=== PATIENT | female | born 1960 | race Caucasian/White ===

== ENCOUNTER 2016-08-11 10:10 | Outpatient (RCR) | payer MEDICARE, MEDICAID ==
--- OUTSIDE RECORDS SUMMARY | 2016-08-07 10:51 | XMS REPORT | Continuity of Care Document ---
Author Author [facility] Organization [facility] Address Unknown Phone Unavailable Care Team Providers Care Mill Representative Name Role Phone SCOTT RANDOLPH DO PCP Insurance Providers Payer Name Policy Number Subscriber Name Relationship [employer] Medicare [id number] Genesis Gandara 18 Self / Same As Patient [facility] [id number] Genesis Gandara 18 Self / Same As Patient [facility] Genesis Welsh 18 Self / Same As Patient Advance Directives Directive Response Recorded Date/Time Advance Directives No 07/12/15 10:34am Health Care Power of Audit Lead No 07/12/15 10:34am Organ Donor No 07/12/15 10:34am Problems Active Problems Medical Problem Onset Date Status Anemia Unknown Acute Hypercarbia Unknown Acute Respiratory failure, acute Unknown Acute Medications Current Home Medications Medication Dose Units Route Directions Days/Qty Instructions Start Date Escitalopram Oxalate 10 Mg 10 Mg Oral Daily 07/12/15 Ursodiol 300 Mg 600 Mg Oral Twice A Day 07/12/15 Furosemide 80 Mg 40 Mg Oral Daily TAKES 1/2 OF A (80 MG) TABLET Spironolactone 100 Mg 100 Mg Oral Daily 07/12/15 Potassium Chloride 20 Meq 20 Meq Oral Daily 07/12/15 Omeprazole 40 Mg 40 Mg Oral Twice A Day 07/12/15 Lipase/Protease/Amylase 1 Each 48,000 Units Oral Before Meals Rifaximin 550 Mg 550 Mg Oral Twice A Day 07/12/15 Teriparatide 600 Mcg/2.4 Ml 20 Mcg Sub-Q Daily 07/12/15 Oxycodone Hcl 15 Mg 7.5 Mg Oral Every 4HRS as needed for Pain 90 07/14 Alprazolam 1 Mg 0.5 Mg Oral Three Times A Day 45 07/14/15 Gabapentin 600 Mg 300 Mg Oral Bedtime 30 07/14/15 Levofloxacin 750 Mg 750 Mg Oral Daily@1100 12 07/14/15 Past Home Medications Medication Directions Ordered Status Aspirin 81 Mg Tabec, 81 Mg Oral Daily 03/07/12 Discontinued Me-Cobalam/Lm-Folate/Pyridoxal 1 Tab Tablet, 1 Tab Oral Daily 03/07/12 Discontinued Oxycodone Hcl/Acetaminophen 1 Each Tablet, 1 Each Oral Daily 03/07/12 Discontinued Tiotropium [place] 1 Inh Aerp, 1 Inhalation Daily@0900 03/07/12 Discontinued Zonisamide 100 Mg Capsule, 100 Mg Oral Twice A Day 03/07/12 Discontinued Albuterol Sulfate 0.63 Mg/3 Ml Vial.neb, 2.5 Mg Inhalation Every 6 Hours as needed 03/07/12 Discontinued Quetiapine Fumarate 200 Mg Tablet, 200 Mg Oral Bedtime 03/07/12 Discontinued Desvenlafaxine Succinate 100 Mg Tab.sr.24h, 100 Mg Oral Daily 03/07/12 Discontinued Alprazolam 1 Mg Tablet, 1 Mg Oral Three Times A Day 03/07/12 Discontinued Ferrous Sulfate 325 Mg Tablet, 325 Mg Oral Twice A Day 03/07/12 Discontinued Ursodiol 250 Mg Tablet, 300 Mg Oral Four Times Daily 07/16/13 Discontinued Esomeprazole Magnesium 40 Mg Capsule.dr, 1 Cap Oral Twice A Day 07/16/13 Discontinued Fluticasone Propionate 250 Mcg Disk.w.dev, 250 Mcg Inhalation 07/16/13 Discontinued Baclofen (Lioresal) 20 Mg Tablet, 1 Each Oral Twice Daily And Prn 07/16/13 Discontinued Fluticasone Propionate 50 Mcg/16 G [place], 50 Mcg Nasal 07/16/13 Discontinued Lidocaine 1 Ea Patch, 3 Each Topically Daily 07/16/13 Discontinued Furosemide (Lasix) 20 Mg Tablet, 1 Each Oral Daily 07/16/13 Discontinued Morphine Sulfate 60 Mg Tablet.sa, 1 Each Oral Give Every 12 Hrs On Schedule 07/16/13 Discontinued Prochlorperazine (Compazine) 5 Mg Tablet, 1-2 Each Oral Q 6 - 8 Hrs Prn 07/16 Discontinued Propranolol Hcl 40 Mg Tablet, 1 Each Oral Daily 07/16/13 Discontinued [Tecfidera] , 240 Mg Oral Twice A Day 07/16/13 Discontinued Morphine Sulfate 100 Mg Tablet.er, 100 Mg Oral Every 12 Hours 07/12/15 Discontinued Oxycodone Hcl 15 Mg Tablet, 15 Mg Oral Four Times Daily as needed for Breakthrough Pain 07/12/15 Discontinued Alprazolam 1 Mg Tablet, 1 Mg Oral Three Times A Day 07/12/15 Discontinued Quetiapine Fumarate 200 Mg Tablet, 200 Mg Oral Bedtime 07/12/15 Discontinued Gabapentin 600 Mg Tablet, 600 Mg Oral Bedtime 07/12/15 Discontinued Social History Social History Problem Response Recorded Date/Time Alcohol Use Denies Use 07/12/2015 3:52pm Recreational Drug Use No 07/12/2015 3:52pm Recent Foreign Travel No 05/12/2016 7:28am Sexually Transmitted Disease No 07/12/2015 3:52pm HIV/AIDS No 07/12/2015 3:52pm Do you dip or chew tobacco? No 07/12/2015 10:34am Sexually Transmitted Disease No 07/12/2015 3:52pm Hospital Discharge Instructions Current inpatient/outpatient. Discharge instructions are currently unavailable. Plan of Care Prescriptions Functional Status No functional status results. Allergies, Adverse Reactions, Alerts No known allergies. Immunizations No immunization records. Vital Signs No known vital signs results. Results Laboratory Results Test Name Result Units Flags Reference Collection Date/Time Result Date/ Time Comments White Blood Count 3.7 10^3/uL L 4.3-11.0 05/04/2016 2:18pm 05/04/2016 2: 26pm Red Blood Count 3.88 10^6/uL L 4.35-5.85 05/04/2016 2:18pm 05/04/2016 2: 26pm Hemoglobin 11.4 G/DL L 11.5-16.0 05/04/2016 2:18pm 05/04/2016 2:26pm Hematocrit 35 % 35-52 05/04/2016 2:18pm 05/04/2016 2:26pm Mean Corpuscular Volume 90 FL 80-99 05/04/2016 2:18pm 05/04/2016 2: 26pm Mean Corpuscular Hemoglobin 29 PG 25-34 05/04/2016 2:18pm 05/04/2016 2: 26pm Mean Corpuscular Hemoglobin Concent 33 G/DL 32-36 05/04/2016 2:18pm 2:26pm Red Cell Distribution Width 14.6 % H 10.0-14.5 05/04/2016 2:18pm 2015 2:26pm Platelet Count 92 10^3/uL L 130-400 05/04/2016 2:18pm 05/04/2016 2:26pm Mean Platelet Volume 10.4 FL 7.4-10.4 05/04/2016 2:18pm 05/04/2016 2: 26pm Neutrophils (%) (Auto) 68 % 42-75 05/04/2016 2:18pm 05/04/2016 2:26pm Lymphocytes (%) (Auto) 20 % 12-44 05/04/2016 2:18pm 05/04/2016 2:26pm Monocytes (%) (Auto) 8 % 0-12 05/04/2016 2:18pm 05/04/2016 2:26pm Eosinophils (%) (Auto) 4 % 0-10 05/04/2016 2:18pm 05/04/2016 2:26pm Basophils (%) (Auto) 0 % 0-10 05/04/2016 2:18pm 05/04/2016 2:26pm Neutrophils # (Auto) 2.5 X 10^3 1.8-7.8 05/04/2016 2:18pm 05/04/2016 2: 26pm Lymphocytes # (Auto) 0.7 X 10^3 L 1.0-4.0 05/04/2016 2:18pm 05/04/2016 2: 26pm Monocytes # (Auto) 0.3 X 10^3 0.0-1.0 05/04/2016 2:18pm 05/04/2016 2: 26pm Eosinophils # (Auto) 0.1 10^3/uL 0.0-0.3 05/04/2016 2:18pm 05/04/2016 2 :26pm Basophils # (Auto) 0.0 10^3/uL 0.0-0.1 05/04/2016 2:18pm 05/04/2016 2: 26pm Sodium Level 144 MMOL/L 135-145 05/04/2016 2:18pm 05/04/2016 3:05pm Potassium Level 4.2 MMOL/L 3.6-5.0 05/04/2016 2:18pm 05/04/2016 3:05pm Chloride Level 112 MMOL/L H 98-107 05/04/2016 2:18pm 05/04/2016 3:05pm Carbon Dioxide Level 21 MMOL/L 21-32 05/04/2016 2:18pm 05/04/2016 3: 05pm Anion Gap 11 MMOL/L 5-14 05/04/2016 2:18pm 05/04/2016 3:05pm Blood Urea Nitrogen 25 MG/DL H 7-18 05/04/2016 2:18pm 05/04/2016 3:05pm Creatinine 1.54 MG/DL H 0.60-1.30 05/04/2016 2:18pm 05/04/2016 3:05pm BUN/Creatinine Ratio 16 05/04/2016 2:18pm 05/04/2016 3:05pm Estimat Glomerular Filtration Rate 35 05/04/2016 2:18pm 05/04/2016 3:05pm GFR INTERPRETIVE DATA UNITS FOR ESTIMATED GFR (eGFR): mL/min/1.73 M2 REFERENCE RANGE FOR ESTIMATED GFR (eGFR) eGFR NORMAL eGFR >60 MODERATELY DECREASED eGFR 30-59 SEVERLY DECREASED eGFR 15-29 KIDNEY FAILURE <15 (OR DIALYSIS) Glucose Level 119 MG/DL H 70-105 05/04/2016 2:18pm 05/04/2016 3:05pm Calcium Level 9.1 MG/DL 8.5-10.1 05/04/2016 2:18pm 05/04/2016 3:05pm Total Bilirubin 0.4 MG/DL 0.1-1.0 05/04/2016 2:18pm 05/04/2016 3:05pm Alkaline Phosphatase 146 U/L H 40-136 05/04/2016 2:18pm 05/04/2016 3: 05pm Aspartate Amino Transf (AST/SGOT) 44 U/L H 5-34 05/04/2016 2:18pm 2015 3:05pm Alanine Aminotransferase (ALT/SGPT) 19 U/L 0-55 05/04/2016 2:18pm 05/04 3:05pm Total Protein 6.2 G/DL L 6.4-8.2 05/04/2016 2:18pm 05/04/2016 3:05pm Albumin 3.4 G/DL 3.2-4.5 05/04/2016 2:18pm 05/04/2016 3:05pm Ferritin 84 ng/mL 15-150 05/04/2016 2:18pm 05/05/2016 6:51am Test performed at [facility], CLIA# [id number] [address] [place] [address] Procedures No known history of procedures. Encounters Encounter Location Arrival/Admit Date Discharge/Depart Date Attending Provider Registered Clinic [facility] 05/12/16 7:31am SCOTT RANDOLPH DO Discharged Recurring [facility] 05/10/16 2:48pm 11:59pm TERRI AHN Registered Clinic [facility] 05/09/16 10:06am SCOTT RANDOLPH DO
[2016-08-07 11:05] LABS: BASOPHILS % (AUTO) 0 % (0-10); EOSINOPHILS # (AUTO) 0.1 10^3/uL (0.0-0.3); EOSINOPHILS % (AUTO) 3 % (0-10); LYMPHOCYTES % (AUTO) 26 % (12-44); MEAN CORPUSCULAR HEMOGLOBIN 29 PG (25-34); MEAN CORPUSCULAR HGB CONC 33 G/DL (32-36); MEAN CORPUSCULAR VOLUME 88 FL (80-99); MEAN PLATELET VOLUME 10.6 FL (7.4-10.4); MONOCYTES # (AUTO) 0.4 X 10^3 (0.0-1.0); MONOCYTES % (AUTO) 10 % (0-12); NEUTROPHILS # (AUTO) 2.3 X 10^3 (1.8-7.8); NEUTROPHILS % (AUTO) 61 % (42-75); PLATELET COUNT 105 10^3/uL (130-400); RED BLOOD COUNT 4.28 10^6/uL (4.35-5.85); WHITE BLOOD COUNT 3.8 10^3/uL (4.3-11.0)
[2016-08-07 11:39] LABS: ALBUMIN 3.8 G/DL (3.2-4.5); BILIRUBIN,TOTAL 0.5 MG/DL (0.1-1.0); CALCIUM 9.1 MG/DL (8.5-10.1); CREATININE SERUM 1.39 MG/DL (0.60-1.30); POTASSIUM 4.4 MMOL/L (3.6-5.0); TOTAL PROTEIN 7.1 G/DL (6.4-8.2)
[~2016-08-11 10:10] MED LIST: ALBU0.632 IH; ALPR1T PO; ALPR1TAB7 PO; ASP81TEC PO; BACL20TA PO; DESV100T PO; ESCI10TA55 PO; FERR-57 PO; FLUT250D IH; FURO20TA4 PO; FURO80TA3 PO; GABA600T2 PO; HYDR-757 PO; LD5PT TOP; LEVO750T39 PO; LIPA1CAP4 PO; MORP100T37 PO; MORP60TA28 PO; NF-ESOM40C PO; NF-FLON16G; NF-METANX PO; OMEP40CA36 PO; OXYC-465 PO; OXYC15TA79 PO; POTA20TA15 PO; PROC5TAB PO; PROP40TA5 PO; QTP200T PO; QUET200T57 PO; RIFA550T PO; SPIR100T2 PO; TERI202.4P SQ; TIOT18CA IH; URSO250T11 PO; URSO300C3 PO; ZONI100C11 PO; tecfidera PO
[2016-08-11 11:17] LABS: BILIRUBIN,URINE NEGATIVE (NEGATIVE); KETONES,URINE NEGATIVE (NEGATIVE); LEUKOCYTE ESTERASE ,URINE 2+ (NEGATIVE); NITRITE,URINE POSITIVE (NEGATIVE); PH,URINE 6.5 (5-9); PROTEIN,URINE NEGATIVE (NEGATIVE); UROBILINOGEN,URINE NORMAL (NORMAL)
== END 2016-11-05 | disposition home or self-care (01) ==
LOC: ONC 10:10
PROVIDERS: ATTEND Internal Medicine Hematology & Oncology
DX: D50.0 Iron deficiency anemia secondary to blood loss (chronic) (principal); K74.3 Primary biliary cirrhosis; D61.818 Other pancytopenia; R16.1 Splenomegaly, not elsewhere classified; F17.210 Nicotine dependence, cigarettes, uncomplicated; R82.99 Other abnormal findings in urine; Z79.899 Other long term (current) drug therapy
CPT/HCPCS: 36415; 80053; 81000; 82728; 85025; 87088; 87186; 99213

== ENCOUNTER → 2016-10-18 | Outpatient (CLI) | payer MEDICARE, MEDICAID ==
--- OUTSIDE RECORDS SUMMARY | 2016-10-18 14:42 | XMS REPORT | Continuity of Care Document ---
Author Author [facility] Organization [facility] Address Unknown Phone Unavailable Care Team Providers Care Analysis Engineer Name Role Phone SCOTT RANDOLPH DO PCP Insurance Providers Payer Name Policy Number Subscriber Name Relationship Wps Medicare [id number] Genesis Gandara 18 Self / Same As Patient [facility] [id number] Genesis Gandara 18 Self / Same As Patient [facility] Genesis Welsh 18 Self / Same As Patient Advance Directives Directive Response Recorded Date/Time Advance Directives No 07/12/15 10:34am Health Care Power of Jointer Machine No 07/12/15 10:34am Organ Donor No 07/12/15 [...] 1 Each Oral Daily 03/07/12 Discontinued Tiotropium [place] 1 Inh Aerp, 1 Inhalation Daily@0900 03/07/12 [...] 07/16/13 Discontinued Fluticasone Propionate 50 Mcg/16 G [place], 50 Mcg Nasal 07/16/13 Discontinued Lidocaine 1 [...] 05/04/2016 2:18pm 05/05/2016 6:51am Test performed at [facility], CLIA# [id number] [address] [place] [address] Procedures No known history of procedures. Encounters Encounter Location Arrival/Admit Date Discharge/Depart Date Attending Provider Registered Clinic [facility] 05/12/16 7:31am SCOTT RANDOLPH DO Discharged Recurring [facility] 05/10/16 2:48pm 11:59pm TERRI AHN Registered Clinic [facility] 05/09/16 10:06am SCOTT RANDOLPH DO
--- NOTE | 2016-10-18 15:19 | Diagnostic Imaging Report ---
INDICATION: Lower respiratory infection. EXAMINATION: PA and lateral chest. FINDINGS: Heart size and pulmonary vascularity are normal. Lungs are clear. There are no effusions or pneumothoraces. IMPRESSION: Negative chest. Dictated by: Dictated on workstation # [id number]
== END ==
LOC: RAD 14:39
PROVIDERS: ATTEND Family Medicine
DX: R05 Cough (principal); R06.2 Wheezing
CPT/HCPCS: 71020

== ENCOUNTER 2016-12-07 09:54 | Outpatient (RCR) | payer MEDICARE, MEDICAID ==
[2016-11-30 14:20] LABS: BASOPHILS % (AUTO) 0 % (0-10); EOSINOPHILS # (AUTO) 0.2 10^3/uL (0.0-0.3); EOSINOPHILS % (AUTO) 6 % (0-10); LYMPHOCYTES # (AUTO) 0.8 X 10^3 (1.0-4.0); LYMPHOCYTES % (AUTO) 24 % (12-44); MEAN CORPUSCULAR HEMOGLOBIN 30 PG (25-34); MEAN CORPUSCULAR HGB CONC 32 G/DL (32-36); MEAN CORPUSCULAR VOLUME 92 FL (80-99); MEAN PLATELET VOLUME 10.1 FL (7.4-10.4); MONOCYTES # (AUTO) 0.3 X 10^3 (0.0-1.0); MONOCYTES % (AUTO) 10 % (0-12); NEUTROPHILS # (AUTO) 2.1 X 10^3 (1.8-7.8); NEUTROPHILS % (AUTO) 61 % (42-75); PLATELET COUNT 105 10^3/uL (130-400); RED BLOOD COUNT 4.09 10^6/uL (4.35-5.85); RED CELL DISTRIBUTION WIDTH 14.5 % (10.0-14.5); WHITE BLOOD COUNT 3.4 10^3/uL (4.3-11.0)
[2016-11-30 14:55] LABS: ALBUMIN 3.3 G/DL (3.2-4.5); BILIRUBIN,TOTAL 0.3 MG/DL (0.1-1.0); CALCIUM 8.8 MG/DL (8.5-10.1); CREATININE SERUM 1.39 MG/DL (0.60-1.30); TOTAL PROTEIN 6.2 G/DL (6.4-8.2)
== END 2017-02-28 | disposition home or self-care (01) ==
LOC: ONC 09:54
PROVIDERS: ATTEND Internal Medicine Hematology & Oncology
DX: D50.0 Iron deficiency anemia secondary to blood loss (chronic) (principal); K74.3 Primary biliary cirrhosis; D61.818 Other pancytopenia; R16.1 Splenomegaly, not elsewhere classified; F17.210 Nicotine dependence, cigarettes, uncomplicated; Z79.899 Other long term (current) drug therapy
CPT/HCPCS: 36415; 80053; 82728; 85025; 99213

== ENCOUNTER 2017-04-17 15:16 | Outpatient (RCR) | payer MEDICARE, MEDICAID ==
[2017-03-01 13:50] LABS: BASOPHILS % (AUTO) 0 % (0-10); EOSINOPHILS # (AUTO) 0.2 10^3/uL (0.0-0.3); EOSINOPHILS % (AUTO) 4 % (0-10); LYMPHOCYTES # (AUTO) 1.2 X 10^3 (1.0-4.0); LYMPHOCYTES % (AUTO) 27 % (12-44); MEAN CORPUSCULAR HEMOGLOBIN 29 PG (25-34); MEAN CORPUSCULAR HGB CONC 32 G/DL (32-36); MEAN CORPUSCULAR VOLUME 90 FL (80-99); MONOCYTES # (AUTO) 0.5 X 10^3 (0.0-1.0); MONOCYTES % (AUTO) 10 % (0-12); NEUTROPHILS # (AUTO) 2.8 X 10^3 (1.8-7.8); NEUTROPHILS % (AUTO) 59 % (42-75); PLATELET COUNT 105 10^3/uL (130-400); RED BLOOD COUNT 4.48 10^6/uL (4.35-5.85); RED CELL DISTRIBUTION WIDTH 14.7 % (10.0-14.5); WHITE BLOOD COUNT 4.7 10^3/uL (4.3-11.0)
[2017-03-01 14:04] LABS: ALBUMIN 3.8 GM/DL (3.2-4.5); BILIRUBIN,TOTAL 0.4 MG/DL (0.1-1.0); CALCIUM 9.3 MG/DL (8.5-10.1); CREATININE SERUM 1.63 MG/DL (0.60-1.30); ICTERUS 0.4 (-100-1.9); POTASSIUM 4.7 MMOL/L (3.6-5.0); TOTAL PROTEIN 7.8 GM/DL (6.4-8.2)
[2017-04-17 15:26] LABS: BASOPHILS % (AUTO) 0 % (0-10); EOSINOPHILS # (AUTO) 0.2 10^3/uL (0.0-0.3); EOSINOPHILS % (AUTO) 3 % (0-10); LYMPHOCYTES # (AUTO) 1.4 X 10^3 (1.0-4.0); LYMPHOCYTES % (AUTO) 25 % (12-44); MEAN CORPUSCULAR HEMOGLOBIN 30 PG (25-34); MEAN CORPUSCULAR HGB CONC 33 G/DL (32-36); MEAN CORPUSCULAR VOLUME 89 FL (80-99); MONOCYTES # (AUTO) 0.5 X 10^3 (0.0-1.0); MONOCYTES % (AUTO) 9 % (0-12); NEUTROPHILS # (AUTO) 3.6 X 10^3 (1.8-7.8); NEUTROPHILS % (AUTO) 63 % (42-75); PLATELET COUNT 116 10^3/uL (130-400); RED BLOOD COUNT 4.45 10^6/uL (4.35-5.85); RED CELL DISTRIBUTION WIDTH 14.9 % (10.0-14.5); WHITE BLOOD COUNT 5.7 10^3/uL (4.3-11.0)
[2017-04-17 15:50] LABS: CALCIUM 10.3 MG/DL (8.5-10.1); CREATININE SERUM 2.04 MG/DL (0.60-1.30); POTASSIUM 4.9 MMOL/L (3.6-5.0)
== END 2017-05-30 | disposition home or self-care (01) ==
LOC: ONC 15:16
PROVIDERS: ATTEND Internal Medicine Hematology & Oncology
DX: D50.0 Iron deficiency anemia secondary to blood loss (chronic); R16.1 Splenomegaly, not elsewhere classified; D61.818 Other pancytopenia; K74.3 Primary biliary cirrhosis; F17.210 Nicotine dependence, cigarettes, uncomplicated; Z79.899 Other long term (current) drug therapy
CPT/HCPCS: 36415; 80048; 80053; 82728; 85025; 99213

== ENCOUNTER 2017-06-05 15:29 | Outpatient (RCR) | payer MEDICARE, MEDICAID ==
[2017-06-05 16:03] LABS: BASOPHILS % (AUTO) 0 % (0-10); EOSINOPHILS # (AUTO) 0.2 10^3/uL (0.0-0.3); EOSINOPHILS % (AUTO) 4 % (0-10); LYMPHOCYTES # (AUTO) 0.9 X 10^3 (1.0-4.0); LYMPHOCYTES % (AUTO) 23 % (12-44); MEAN CORPUSCULAR HEMOGLOBIN 30 PG (25-34); MEAN CORPUSCULAR HGB CONC 33 G/DL (32-36); MEAN CORPUSCULAR VOLUME 93 FL (80-99); MONOCYTES # (AUTO) 0.4 X 10^3 (0.0-1.0); MONOCYTES % (AUTO) 10 % (0-12); NEUTROPHILS # (AUTO) 2.3 X 10^3 (1.8-7.8); NEUTROPHILS % (AUTO) 63 % (42-75); PLATELET COUNT 83 10^3/uL (130-400); RED BLOOD COUNT 3.93 10^6/uL (4.35-5.85); RED CELL DISTRIBUTION WIDTH 13.9 % (10.0-14.5); WHITE BLOOD COUNT 3.6 10^3/uL (4.3-11.0)
[2017-06-05 16:25] LABS: ALBUMIN 3.1 GM/DL (3.2-4.5); BILIRUBIN,TOTAL 0.5 MG/DL (0.1-1.0); CALCIUM 8.6 MG/DL (8.5-10.1); CREATININE SERUM 1.31 MG/DL (0.60-1.30); POTASSIUM 4.6 MMOL/L (3.6-5.0); TOTAL PROTEIN 6.3 GM/DL (6.4-8.2)
== END 2017-06-09 | disposition home or self-care (01) ==
LOC: ONC 15:29
PROVIDERS: ATTEND Internal Medicine Hematology & Oncology
DX: D50.0 Iron deficiency anemia secondary to blood loss (chronic) (principal); K74.3 Primary biliary cirrhosis; D61.818 Other pancytopenia; R16.1 Splenomegaly, not elsewhere classified; F17.210 Nicotine dependence, cigarettes, uncomplicated; Z79.899 Other long term (current) drug therapy
CPT/HCPCS: 36415; 80053; 82728; 85025

== ENCOUNTER 2017-06-14 13:21 | Outpatient (RCR) | payer MEDICARE, MEDICAID | END 2017-09-12 | disposition home or self-care (01) | LOC: ONC 13:21 | PROVIDERS: ATTEND Internal Medicine Hematology & Oncology | DX: D50.0 Iron deficiency anemia secondary to blood loss (chronic) (principal); K92.2 Gastrointestinal hemorrhage, unspecified; K74.3 Primary biliary cirrhosis; D61.818 Other pancytopenia; R16.1 Splenomegaly, not elsewhere classified; F17.210 Nicotine dependence, cigarettes, uncomplicated; L03.113 Cellulitis of right upper limb; S40.861A Insect bite (nonvenomous) of right upper arm, initial encounter; W57.XXXA Bitten or stung by nonvenomous insect and other nonvenomous arthropods, initial encounter; Z79.899 Other long term (current) drug therapy | CPT/HCPCS: 99213 ==

== ENCOUNTER → 2017-10-17 | Outpatient (CLI) | payer MEDICARE, MEDICAID ==
--- NOTE | 2017-10-17 18:20 | Diagnostic Imaging Report ---
INDICATION: Left hip pain x2 weeks. FINDINGS: There appears to be an old healed fracture of the left pubis. There is minimal joint space narrowing. There is a small osteophyte beginning to from at the superior lateral acetabular margin. IMPRESSION: Early degenerative changes left hip. There is an old healed pubic fracture. Dictated by: Dictated on workstation # [id number]
== END ==
LOC: RAD 16:10
PROVIDERS: ATTEND Nurse Practitioner Family
DX: M16.12 Unilateral primary osteoarthritis, left hip (principal); Z87.81 Personal history of (healed) traumatic fracture
CPT/HCPCS: 73502

== ENCOUNTER 2017-10-30 13:35 | Outpatient (RCR) | payer MEDICARE, MEDICAID ==
[2017-10-15 14:56] LABS: BASOPHILS % (AUTO) 0 % (0-10); EOSINOPHILS # (AUTO) 0.1 10^3/uL (0.0-0.3); EOSINOPHILS % (AUTO) 3 % (0-10); HEMATOCRIT 37 % (35-52); HEMOGLOBIN 12.2 G/DL (11.5-16.0); LYMPHOCYTES # (AUTO) 0.9 X 10^3 (1.0-4.0); LYMPHOCYTES % (AUTO) 25 % (12-44); MEAN CORPUSCULAR HEMOGLOBIN 30 PG (25-34); MEAN CORPUSCULAR HGB CONC 33 G/DL (32-36); MEAN CORPUSCULAR VOLUME 89 FL (80-99); MEAN PLATELET VOLUME 11.8 FL (7.4-10.4); MONOCYTES # (AUTO) 0.4 X 10^3 (0.0-1.0); MONOCYTES % (AUTO) 10 % (0-12); NEUTROPHILS # (AUTO) 2.2 X 10^3 (1.8-7.8); NEUTROPHILS % (AUTO) 62 % (42-75); PLATELET COUNT 94 10^3/uL (130-400); RED BLOOD COUNT 4.14 10^6/uL (4.35-5.85); RED CELL DISTRIBUTION WIDTH 13.9 % (10.0-14.5); WHITE BLOOD COUNT 3.5 10^3/uL (4.3-11.0)
[2017-10-15 15:16] LABS: ALBUMIN 3.2 GM/DL (3.2-4.5); BILIRUBIN,TOTAL 0.6 MG/DL (0.1-1.0); CALCIUM 8.6 MG/DL (8.5-10.1); CREATININE SERUM 1.24 MG/DL (0.60-1.30); POTASSIUM 3.4 MMOL/L (3.6-5.0); TOTAL PROTEIN 6.5 GM/DL (6.4-8.2)
== END 2018-01-13 | disposition home or self-care (01) ==
LOC: ONC 13:35
PROVIDERS: ATTEND Internal Medicine Hematology & Oncology
DX: D50.0 Iron deficiency anemia secondary to blood loss (chronic) (principal); K92.2 Gastrointestinal hemorrhage, unspecified; K74.3 Primary biliary cirrhosis; D61.818 Other pancytopenia; F17.210 Nicotine dependence, cigarettes, uncomplicated; Z79.899 Other long term (current) drug therapy
CPT/HCPCS: 36415; 80053; 82728; 85025; 99213

== ENCOUNTER → 2018-01-10 | Outpatient (CLI) | payer MEDICARE, MEDICAID ==
--- NOTE | 2018-01-10 10:44 | Diagnostic Imaging Report ---
INDICATION: Primary biliary cirrhosis. FINDINGS: The liver is 13.6 cm in size. There appears to be some diffuse liver parenchymal heterogeneity but no discrete liver mass is identified. The gallbladder is surgically absent. No biliary ductal dilatation is seen. Visualized pancreas is unremarkable. Right kidney is unremarkable. There is no ascites. IMPRESSION: Liver heterogeneity. No discrete liver mass is detected. Dictated by: Dictated on workstation # [id number]
== END ==
LOC: RAD 09:37
PROVIDERS: ATTEND Family Medicine
DX: K76.89 Other specified diseases of liver (principal); K74.3 Primary biliary cirrhosis
CPT/HCPCS: 76705

== ENCOUNTER 2018-02-27 08:57 | Outpatient (RCR) | payer MEDICARE, MEDICAID ==
[2018-02-22 10:49] LABS: BASOPHILS % (AUTO) 0 % (0-10); EOSINOPHILS # (AUTO) 0.2 10^3/uL (0.0-0.3); EOSINOPHILS % (AUTO) 4 % (0-10); HEMATOCRIT 38 % (35-52); HEMOGLOBIN 12.8 G/DL (11.5-16.0); LYMPHOCYTES # (AUTO) 0.9 X 10^3 (1.0-4.0); LYMPHOCYTES % (AUTO) 27 % (12-44); MEAN CORPUSCULAR HEMOGLOBIN 30 PG (25-34); MEAN CORPUSCULAR HGB CONC 34 G/DL (32-36); MEAN CORPUSCULAR VOLUME 89 FL (80-99); MEAN PLATELET VOLUME 11.6 FL (7.4-10.4); MONOCYTES # (AUTO) 0.3 X 10^3 (0.0-1.0); MONOCYTES % (AUTO) 9 % (0-12); NEUTROPHILS # (AUTO) 2.1 X 10^3 (1.8-7.8); NEUTROPHILS % (AUTO) 60 % (42-75); PLATELET COUNT 89 10^3/uL (130-400); RED BLOOD COUNT 4.29 10^6/uL (4.35-5.85); RED CELL DISTRIBUTION WIDTH 14.4 % (10.0-14.5); WHITE BLOOD COUNT 3.5 10^3/uL (4.3-11.0)
[2018-02-22 11:05] LABS: ALBUMIN 3.7 GM/DL (3.2-4.5); BILIRUBIN,TOTAL 0.5 MG/DL (0.1-1.0); CALCIUM 9.2 MG/DL (8.5-10.1); CREATININE SERUM 1.24 MG/DL (0.60-1.30); POTASSIUM 4.2 MMOL/L (3.6-5.0); TOTAL PROTEIN 7.1 GM/DL (6.4-8.2)
[~2018-02-27 08:57] MED LIST changes: +HYDR-4226 PO; -HYDR-757 PO; -SPIR100T2 PO; +SPIR100T4 PO
[2018-05-24 13:21] LABS: BASOPHILS % (AUTO) 0 % (0-10); EOSINOPHILS # (AUTO) 0.1 10^3/uL (0.0-0.3); EOSINOPHILS % (AUTO) 3 % (0-10); HEMATOCRIT 36 % (35-52); HEMOGLOBIN 12.2 G/DL (11.5-16.0); LYMPHOCYTES # (AUTO) 1.2 X 10^3 (1.0-4.0); LYMPHOCYTES % (AUTO) 28 % (12-44); MEAN CORPUSCULAR HEMOGLOBIN 31 PG (25-34); MEAN CORPUSCULAR HGB CONC 34 G/DL (32-36); MEAN CORPUSCULAR VOLUME 90 FL (80-99); MONOCYTES # (AUTO) 0.3 X 10^3 (0.0-1.0); MONOCYTES % (AUTO) 7 % (0-12); NEUTROPHILS # (AUTO) 2.6 X 10^3 (1.8-7.8); NEUTROPHILS % (AUTO) 61 % (42-75); PLATELET COUNT 97 10^3/uL (130-400); RED BLOOD COUNT 3.97 10^6/uL (4.35-5.85); RED CELL DISTRIBUTION WIDTH 14.1 % (10.0-14.5); WHITE BLOOD COUNT 4.3 10^3/uL (4.3-11.0)
[2018-05-24 13:38] LABS: ALBUMIN 3.6 GM/DL (3.2-4.5); BILIRUBIN,TOTAL 0.6 MG/DL (0.1-1.0); CREATININE SERUM 1.49 MG/DL (0.60-1.30); TOTAL PROTEIN 6.7 GM/DL (6.4-8.2)
== END 2018-05-23 | disposition home or self-care (01) ==
LOC: ONC 08:57
PROVIDERS: ATTEND Internal Medicine Hematology & Oncology
DX: D50.0 Iron deficiency anemia secondary to blood loss (chronic) (principal); K92.2 Gastrointestinal hemorrhage, unspecified; R16.1 Splenomegaly, not elsewhere classified; K74.3 Primary biliary cirrhosis; D61.818 Other pancytopenia; F17.210 Nicotine dependence, cigarettes, uncomplicated; Z79.899 Other long term (current) drug therapy
CPT/HCPCS: 36415; 80053; 82105; 82728; 85025; 99213

== ENCOUNTER 2018-05-24 13:07 | Outpatient (RCR) | payer MEDICARE, MEDICAID | END 2018-06-09 | disposition home or self-care (01) | LOC: ONC 13:07 | PROVIDERS: ATTEND Internal Medicine Hematology & Oncology | DX: D50.0 Iron deficiency anemia secondary to blood loss (chronic) (principal); K92.2 Gastrointestinal hemorrhage, unspecified; R16.1 Splenomegaly, not elsewhere classified; K74.3 Primary biliary cirrhosis; D61.818 Other pancytopenia; F17.210 Nicotine dependence, cigarettes, uncomplicated; Z79.899 Other long term (current) drug therapy ==

== ENCOUNTER → 2018-07-04 | Outpatient (CLI) | payer MEDICARE, MEDICAID ==
[2018-07-04 16:32] LABS: CREATININE SERUM 1.46 MG/DL (0.60-1.30)
--- NOTE | 2018-07-04 18:43 | Diagnostic Imaging Report ---
PROCEDURE: MRI lumbar spine. TECHNIQUE: Multiplanar, multisequence MRI of the lumbar spine was performed without contrast. INDICATION: Low back pain and left hip pain with weakness. FINDINGS: The alignment of the lumbar spine is normal. The vertebral body heights are well maintained. There is no spondylolysis or spondylolisthesis. No fractures are identified. The conus medullaris is seen at L1 and is normal in appearance. The T12-L1 disc is unremarkable. The L1-2 disc is unremarkable. There is mild facet disease. The L2-3 disc is normal in height, signal intensity, and morphology. There is mild facet disease. At L3-4, the disc is normal in height, signal intensity, and morphology. There is some facet disease and mild thickening of the ligamentum flavum. There is minimal neural foraminal encroachment. At L4-5, there is slight loss of disc height and signal intensity with some minimal annular bulging. There is no spinal or neural foraminal encroachment. The L5-S1 disc is normal in height, signal intensity, and morphology. The abdominal aorta is nonaneurysmal. Kidneys are unremarkable. IMPRESSION: Minimal lumbar spondylosis as described without focal disc extrusion, high-grade spinal stenosis, or neural foraminal encroachment. Dictated by: Dictated on workstation # [id number]
--- NOTE | 2018-07-05 08:24 | Diagnostic Imaging Report ---
PROCEDURE: MRI left joint lower extremity without contrast. TECHNIQUE: Multiplanar, multisequence non contrast-enhanced MRI of the pelvis with small vherk-ha-tvzy sequences of the left hip INDICATION: Low back pain with left hip pain and weakness. History of multiple sclerosis. COMPARISON: Radiographs from 10/17/2017 FINDINGS: There is serpiginous T2 hyperintense signal at the superior articular surface of the femoral heads bilaterally, left much more than right. This consistent with osteonecrosis of the femoral heads. There is mild cortical step-off of approximately 1 mm seen at the left femoral head (image 13 series 9). There are moderate to severe degenerative changes in the bilateral hip joints. Mild edema seen in the left acetabulum, likely degenerative. There is a large left hip joint effusion. There is deformity of the left pubic body, with associated bone marrow edema, may be due to degenerative changes secondary to remote trauma. The remainder of the pelvis is unremarkable. There is mild edema in the left adductor musculature. No soft tissue fluid collections are seen. The bilateral iliopsoas tendons appear intact. The gluteal tendons appear intact. No greater trochanteric or iliopsoas bursitis is seen. The hamstring tendons are unremarkable. There appears to be degenerative tearing of the left acetabular labrum. No free fluid or masses are seen in the pelvis. IMPRESSION: 1. Osteonecrosis of the femoral heads bilaterally, left much more than right. There is mild articular surface collapse of the left femoral head. 2. Large left hip joint effusion, likely reactive, although nonspecific. 3. Moderate to marked degenerative changes in the bilateral hip joints, left greater than right. Dictated by: Dictated on workstation # [id number]
== END ==
LOC: RAD 15:33
PROVIDERS: ATTEND Family Medicine
DX: M47.816 Spondylosis without myelopathy or radiculopathy, lumbar region (principal); M87.852 Other osteonecrosis, left femur; M87.851 Other osteonecrosis, right femur; M16.0 Bilateral primary osteoarthritis of hip; Z86.2 Personal history of diseases of the blood and blood-forming organs and certain disorders involving the immune mechanism
CPT/HCPCS: 36415; 72148; 73721; 82565; 84520

== ENCOUNTER 2018-08-27 10:18 | Outpatient (RCR) | payer MEDICARE, MEDICAID ==
[2018-08-20 15:30] LABS: BASOPHILS % (AUTO) 1 % (0-10); EOSINOPHILS # (AUTO) 0.2 10^3/uL (0.0-0.3); EOSINOPHILS % (AUTO) 4 % (0-10); HEMATOCRIT 39 % (35-52); HEMOGLOBIN 12.5 G/DL (11.5-16.0); LYMPHOCYTES # (AUTO) 1.1 X 10^3 (1.0-4.0); LYMPHOCYTES % (AUTO) 25 % (12-44); MEAN CORPUSCULAR HEMOGLOBIN 29 PG (25-34); MEAN CORPUSCULAR HGB CONC 33 G/DL (32-36); MEAN CORPUSCULAR VOLUME 90 FL (80-99); MEAN PLATELET VOLUME 10.7 FL (7.4-10.4); MONOCYTES # (AUTO) 0.5 X 10^3 (0.0-1.0); MONOCYTES % (AUTO) 10 % (0-12); NEUTROPHILS # (AUTO) 2.7 X 10^3 (1.8-7.8); NEUTROPHILS % (AUTO) 61 % (42-75); PLATELET COUNT 73 10^3/uL (130-400); RED CELL DISTRIBUTION WIDTH 14.5 % (10.0-14.5); WHITE BLOOD COUNT 4.4 10^3/uL (4.3-11.0)
[2018-08-20 15:51] LABS: ALBUMIN 3.8 GM/DL (3.2-4.5); BILIRUBIN,TOTAL 0.7 MG/DL (0.1-1.0); CALCIUM 9.7 MG/DL (8.5-10.1); CREATININE SERUM 1.48 MG/DL (0.60-1.30); POTASSIUM 4.8 MMOL/L (3.6-5.0); TOTAL PROTEIN 6.6 GM/DL (6.4-8.2)
[~2018-08-27 10:18] MED LIST changes: -GABA600T2 PO; +GBPN600T PO
== END 2018-11-18 | disposition home or self-care (01) ==
LOC: ONC 10:18
PROVIDERS: ATTEND Internal Medicine Hematology & Oncology
DX: D50.0 Iron deficiency anemia secondary to blood loss (chronic) (principal); K92.2 Gastrointestinal hemorrhage, unspecified; R16.1 Splenomegaly, not elsewhere classified; K74.3 Primary biliary cirrhosis; D61.818 Other pancytopenia; F17.210 Nicotine dependence, cigarettes, uncomplicated; Z79.899 Other long term (current) drug therapy
CPT/HCPCS: 80053; 82728; 85025; 99213

== ENCOUNTER 2019-02-27 09:48 | Outpatient (RCR) | payer MEDICARE, MEDICAID ==
[2018-12-24 11:33] LABS: BASOPHILS % (AUTO) 0 % (0-10); EOSINOPHILS # (AUTO) 0.1 10^3/uL (0.0-0.3); EOSINOPHILS % (AUTO) 2 % (0-10); HEMATOCRIT 42 % (35-52); HEMOGLOBIN 14.1 G/DL (11.5-16.0); LYMPHOCYTES # (AUTO) 1.3 X 10^3 (1.0-4.0); LYMPHOCYTES % (AUTO) 25 % (12-44); MEAN CORPUSCULAR HEMOGLOBIN 30 PG (25-34); MEAN CORPUSCULAR HGB CONC 34 G/DL (32-36); MEAN CORPUSCULAR VOLUME 89 FL (80-99); MEAN PLATELET VOLUME 11.3 FL (7.4-10.4); MONOCYTES # (AUTO) 0.5 X 10^3 (0.0-1.0); MONOCYTES % (AUTO) 9 % (0-12); NEUTROPHILS # (AUTO) 3.3 X 10^3 (1.8-7.8); NEUTROPHILS % (AUTO) 64 % (42-75); PLATELET COUNT 114 10^3/uL (130-400); RED CELL DISTRIBUTION WIDTH 13.7 % (10.0-14.5); WHITE BLOOD COUNT 5.2 10^3/uL (4.3-11.0)
[2019-02-24 15:16] LABS: BASOPHILS % (AUTO) 0 % (0-10); EOSINOPHILS # (AUTO) 0.1 10^3/uL (0.0-0.3); EOSINOPHILS % (AUTO) 3 % (0-10); HEMATOCRIT 38 % (35-52); HEMOGLOBIN 12.7 G/DL (11.5-16.0); LYMPHOCYTES # (AUTO) 0.8 X 10^3 (1.0-4.0); LYMPHOCYTES % (AUTO) 24 % (12-44); MEAN CORPUSCULAR HEMOGLOBIN 30 PG (25-34); MEAN CORPUSCULAR HGB CONC 33 G/DL (32-36); MEAN CORPUSCULAR VOLUME 90 FL (80-99); MONOCYTES # (AUTO) 0.3 X 10^3 (0.0-1.0); MONOCYTES % (AUTO) 9 % (0-12); NEUTROPHILS % (AUTO) 64 % (42-75); PLATELET COUNT 87 10^3/uL (130-400); WHITE BLOOD COUNT 3.2 10^3/uL (4.3-11.0)
[2019-02-24 15:37] LABS: ALBUMIN 3.5 GM/DL (3.2-4.5); BILIRUBIN,TOTAL 0.6 MG/DL (0.1-1.0); CALCIUM 8.9 MG/DL (8.5-10.1); CREATININE SERUM 1.06 MG/DL (0.60-1.30); POTASSIUM 3.9 MMOL/L (3.6-5.0); TOTAL PROTEIN 6.4 GM/DL (6.4-8.2)
== END 2019-03-24 | disposition home or self-care (01) ==
LOC: ONC 09:48
PROVIDERS: ATTEND Internal Medicine Hematology & Oncology
DX: D50.0 Iron deficiency anemia secondary to blood loss (chronic) (principal); K92.2 Gastrointestinal hemorrhage, unspecified; R16.1 Splenomegaly, not elsewhere classified; K74.3 Primary biliary cirrhosis; D61.818 Other pancytopenia; F17.210 Nicotine dependence, cigarettes, uncomplicated; Z79.899 Other long term (current) drug therapy
CPT/HCPCS: 36415; 80053; 82105; 82728; 85025; 99213

== ENCOUNTER → 2019-05-06 | Outpatient (CLI) | payer MEDICARE, MEDICAID ==
--- NOTE | 2019-05-06 17:54 | Diagnostic Imaging Report ---
PROCEDURE: US Hepatic (Liver). TECHNIQUE: Multiple real-time grayscale images were obtained over the right upper quadrant in various projections. INDICATION: Biliary cirrhosis. FINDINGS: Liver is heterogeneous. Gallbladder is surgically absent. Common bile duct measures 6 mm. There are no focal liver lesions. Visualized portions of the pancreas are unremarkable. Right kidney is normal. There is no ascites. IMPRESSION: Heterogeneous appearance of the liver, otherwise unremarkable right quadrant ultrasound status post cholecystectomy. Dictated by: Dictated on workstation # [id number]
--- NOTE | 2019-05-06 21:03 | Diagnostic Imaging Report ---
INDICATION: Screening. The current study was also evaluated with a Computer Aided Detection (CAD) system. 3-D Tomographic imaging was also performed. Comparison made with prior examinations from 11/18/2013 and 07/04/2013. FINDINGS: There are scattered fibroglandular densities bilaterally. There is a surgical clip in the central right breast. There are scattered benign-type calcifications in both breasts. There is no new dominant mass, spiculated lesion, or suspicious calcification identified. The skin, nipples, and axillae are unremarkable. IMPRESSION: Benign. ACR BI-RADS Category 2: Benign findings. Result letter will be mailed to the patient. Note: At least 10% of breast cancer is not imaged by mammography. Dictated by: Dictated on workstation # [id number]
== END ==
LOC: RAD 09:41
PROVIDERS: ATTEND Family Medicine
DX: Z12.31 Encounter for screening mammogram for malignant neoplasm of breast (principal); K74.3 Primary biliary cirrhosis; Z90.49 Acquired absence of other specified parts of digestive tract
CPT/HCPCS: 76705; 77067

== ENCOUNTER → 2019-06-03 | Outpatient (CLI) | payer MEDICARE, MEDICAID ==
--- NOTE | 2019-06-03 16:41 | Diagnostic Imaging Report ---
INDICATION: Neck pain with radiation down the right arm. COMPARISON: None. FINDINGS: Frontal, lateral, and open-mouth radiographic views of the cervical spine were obtained. Cervical spine is seen down to the C7-T1 level on the lateral view. Static alignment is maintained. There is no significant anteroretrolisthesis. There is no evidence of jumped facets. Vertebral body heights are maintained. There is no evidence of acute fracture. Intervertebral disc heights are also fairly well preserved. There may be some mild multilevel facet arthropathy. Surrounding soft tissue structures are within normal limits. Included portions of the lung apices are clear. Open mouth view shows normal C1-C2 alignment. IMPRESSION: 1. Perhaps minimal multilevel degenerative changes of the cervical spine, but no evidence of acute fracture or dislocation. Dictated by: Dictated on workstation # [id number]
== END ==
LOC: RAD 15:59
PROVIDERS: ATTEND Family Medicine
DX: M54.2 Cervicalgia (principal)
CPT/HCPCS: 72040

== ENCOUNTER → 2019-06-10 | Outpatient (CLI) | payer MEDICARE, MEDICAID | LOC: CARD 08:36 | PROVIDERS: ATTEND Family Medicine | DX: I07.1 Rheumatic tricuspid insufficiency (principal) | CPT/HCPCS: 93306 ==

== ENCOUNTER 2019-09-24 14:09 | Outpatient (RCR) | payer MEDICARE, MEDICAID ==
[2019-09-22 12:05] LABS: BASOPHILS % (AUTO) 1 % (0-10); EOSINOPHILS # (AUTO) 0.1 10^3/uL (0.0-0.3); EOSINOPHILS % (AUTO) 2 % (0-10); HEMATOCRIT 41 % (35-52); HEMOGLOBIN 13.3 G/DL (11.5-16.0); LYMPHOCYTES # (AUTO) 1.1 X 10^3 (1.0-4.0); LYMPHOCYTES % (AUTO) 28 % (12-44); MEAN CORPUSCULAR HEMOGLOBIN 30 PG (25-34); MEAN CORPUSCULAR HGB CONC 32 G/DL (32-36); MEAN CORPUSCULAR VOLUME 91 FL (80-99); MEAN PLATELET VOLUME 11.4 FL (7.4-10.4); MONOCYTES # (AUTO) 0.3 X 10^3 (0.0-1.0); MONOCYTES % (AUTO) 8 % (0-12); NEUTROPHILS # (AUTO) 2.4 X 10^3 (1.8-7.8); NEUTROPHILS % (AUTO) 61 % (42-75); PLATELET COUNT 89 10^3/uL (130-400); RED CELL DISTRIBUTION WIDTH 13.9 % (10.0-14.5); WHITE BLOOD COUNT 3.9 10^3/uL (4.3-11.0)
[2019-09-22 12:34] LABS: CREATININE SERUM 1.43 MG/DL (0.60-1.30); POTASSIUM 4.3 MMOL/L (3.6-5.0)
[2019-09-22 12:35] LABS: BILIRUBIN,TOTAL 0.5 MG/DL (0.1-1.0); CALCIUM 9.4 MG/DL (8.5-10.1); TOTAL PROTEIN 7.6 GM/DL (6.4-8.2)
[~2019-09-24 14:09] MED LIST changes: -MORP100T37 PO; +MORP100T47 PO; +OMEP40CA27 PO; -OMEP40CA36 PO; +OXYC-525 PO; -OXYC15TA79 PO; +QUET200T29 PO; -QUET200T57 PO
== END 2019-12-21 | disposition home or self-care (01) ==
LOC: ONC 14:09
PROVIDERS: ATTEND Internal Medicine Hematology & Oncology
DX: D50.0 Iron deficiency anemia secondary to blood loss (chronic) (principal); K92.2 Gastrointestinal hemorrhage, unspecified; R16.1 Splenomegaly, not elsewhere classified; K74.3 Primary biliary cirrhosis; D61.818 Other pancytopenia; F17.210 Nicotine dependence, cigarettes, uncomplicated; Z79.899 Other long term (current) drug therapy
CPT/HCPCS: 80053; 82728; 85025; 99213

== ENCOUNTER → 2020-03-03 | Outpatient (CLI) | payer MEDICARE, MEDICAID ==
[2020-03-03 09:44] LABS: BASOPHILS % (AUTO) 0 % (0-10); EOSINOPHILS # (AUTO) 0.1 10^3/uL (0.0-0.3); EOSINOPHILS % (AUTO) 5 % (0-10); HEMATOCRIT 35 % (35-52); HEMOGLOBIN 11.4 G/DL (11.5-16.0); LYMPHOCYTES # (AUTO) 0.7 X 10^3 (1.0-4.0); LYMPHOCYTES % (AUTO) 28 % (12-44); MEAN CORPUSCULAR HEMOGLOBIN 29 PG (25-34); MEAN CORPUSCULAR HGB CONC 33 G/DL (32-36); MEAN CORPUSCULAR VOLUME 89 FL (80-99); MEAN PLATELET VOLUME 10.9 FL (7.4-10.4); MONOCYTES # (AUTO) 0.2 X 10^3 (0.0-1.0); MONOCYTES % (AUTO) 10 % (0-12); NEUTROPHILS # (AUTO) 1.4 X 10^3 (1.8-7.8); NEUTROPHILS % (AUTO) 57 % (42-75); PLATELET COUNT 76 10^3/uL (130-400); RED CELL DISTRIBUTION WIDTH 14.6 % (10.0-14.5); WHITE BLOOD COUNT 2.4 10^3/uL (4.3-11.0)
[2020-03-03 09:57] LABS: ALBUMIN 3.6 GM/DL (3.2-4.5); BILIRUBIN,TOTAL 0.7 MG/DL (0.1-1.0); CALCIUM 9.2 MG/DL (8.5-10.1); CREATININE SERUM 1.4 MG/DL (0.60-1.30)
[2020-03-03 10:17] LABS: EOSINOPHILS % (MANUAL) 3 %; LYMPHOCYTES % (MANUAL) 33 %; MONOCYTES % (MANUAL) 6 %; NEUTROPHILS % (MANUAL) 58 %
[2020-03-03 10:18] LABS: RBC MORPH NORMAL
== END ==
LOC: LAB 09:08
PROVIDERS: ATTEND Family Medicine
DX: J44.1 Chronic obstructive pulmonary disease with (acute) exacerbation (principal); E78.2 Mixed hyperlipidemia; D64.9 Anemia, unspecified; G35 Multiple sclerosis
CPT/HCPCS: 36415; 80053; 80061; 85007; 85027

== ENCOUNTER 2020-03-29 10:49 | Outpatient (RCR) | payer MEDICARE, MEDICAID ==
[2020-03-03 09:25] LABS: BASOPHILS % (AUTO) 0 % (0-10); EOSINOPHILS # (AUTO) 0.1 10^3/uL (0.0-0.3); EOSINOPHILS % (AUTO) 5 % (0-10); HEMATOCRIT 35 % (35-52); HEMOGLOBIN 11.4 G/DL (11.5-16.0); LYMPHOCYTES # (AUTO) 0.7 X 10^3 (1.0-4.0); LYMPHOCYTES % (AUTO) 28 % (12-44); MEAN CORPUSCULAR HEMOGLOBIN 29 PG (25-34); MEAN CORPUSCULAR HGB CONC 33 G/DL (32-36); MEAN CORPUSCULAR VOLUME 89 FL (80-99); MEAN PLATELET VOLUME 10.9 FL (7.4-10.4); MONOCYTES # (AUTO) 0.2 X 10^3 (0.0-1.0); MONOCYTES % (AUTO) 10 % (0-12); NEUTROPHILS # (AUTO) 1.4 X 10^3 (1.8-7.8); NEUTROPHILS % (AUTO) 57 % (42-75); PLATELET COUNT 76 10^3/uL (130-400); WHITE BLOOD COUNT 2.4 10^3/uL (4.3-11.0)
[2020-03-03 09:52] LABS: ALBUMIN 3.7 GM/DL (3.2-4.5); BILIRUBIN,TOTAL 0.7 MG/DL (0.1-1.0); CALCIUM 9.1 MG/DL (8.5-10.1); CREATININE SERUM 1.39 MG/DL (0.60-1.30)
[~2020-03-29 10:49] MED LIST changes: +FERRIC CARBOXYMALTOSE (CANCER) 750 MG in NS (IVPB) CANCER CENTER 250 ML IV SCH
== END 2020-06-01 | disposition home or self-care (01) ==
LOC: ONC 10:49
PROVIDERS: ATTEND Internal Medicine Hematology & Oncology
DX: D50.0 Iron deficiency anemia secondary to blood loss (chronic) (principal); K92.2 Gastrointestinal hemorrhage, unspecified; R16.1 Splenomegaly, not elsewhere classified; K74.5 Biliary cirrhosis, unspecified; D61.818 Other pancytopenia; F17.210 Nicotine dependence, cigarettes, uncomplicated; Z79.899 Other long term (current) drug therapy
CPT/HCPCS: 80053; 82105; 82728; 96365

== ENCOUNTER → 2020-03-31 | Outpatient (CLI) | payer MEDICARE, MEDICAID ==
[~2020-03-31] MED LIST changes: -FERRIC CARBOXYMALTOSE (CANCER) 750 MG in NS (IVPB) CANCER CENTER 250 ML IV SCH
== END ==
LOC: LABNPT 06:50
PROVIDERS: ATTEND Family Medicine
DX: R50.9 Fever, unspecified (principal); R05 Cough; R06.00 Dyspnea, unspecified; R51 Headache; J02.9 Acute pharyngitis, unspecified; Z20.828 Contact with and (suspected) exposure to other viral communicable diseases
CPT/HCPCS: 87635

== ENCOUNTER → 2020-04-20 | Outpatient (CLI) | payer MEDICARE, MEDICAID ==
--- NOTE | 2020-04-20 10:17 | Diagnostic Imaging Report ---
INDICATION: COUGH DYSPNEA COMPARISON: 10/18/2016 FINDINGS: Frontal and lateral views of the chest demonstrate normal heart size and pulmonary vascularity. The lungs are clear. There are no signs of infiltrate, pleural effusions or pneumothoraces. The visualized osseous structures show no acute abnormalities. IMPRESSION: 1. No acute process. No signs of infiltrates, effusions or pneumothoraces. Dictated by: Dictated on workstation # [id number]
== END ==
LOC: RAD 08:36
PROVIDERS: ATTEND Family Medicine
DX: R05 Cough (principal); R06.00 Dyspnea, unspecified
CPT/HCPCS: 71046

== ENCOUNTER → 2020-04-20 | Outpatient (CLI) | payer MEDICARE, MEDICAID ==
[2020-04-20 08:32] LABS: BASOPHILS % (AUTO) 0 % (0-10); EOSINOPHILS # (AUTO) 0.1 10^3/uL (0.0-0.3); EOSINOPHILS % (AUTO) 3 % (0-10); HEMATOCRIT 35 % (35-52); HEMOGLOBIN 11.5 G/DL (11.5-16.0); LYMPHOCYTES # (AUTO) 0.9 X 10^3 (1.0-4.0); LYMPHOCYTES % (AUTO) 30 % (12-44); MEAN CORPUSCULAR HEMOGLOBIN 30 PG (25-34); MEAN CORPUSCULAR HGB CONC 33 G/DL (32-36); MEAN CORPUSCULAR VOLUME 91 FL (80-99); MONOCYTES # (AUTO) 0.3 X 10^3 (0.0-1.0); MONOCYTES % (AUTO) 10 % (0-12); NEUTROPHILS # (AUTO) 1.6 X 10^3 (1.8-7.8); NEUTROPHILS % (AUTO) 57 % (42-75); PLATELET COUNT 72 10^3/uL (130-400); RED CELL DISTRIBUTION WIDTH 15.5 % (10.0-14.5); WHITE BLOOD COUNT 2.9 10^3/uL (4.3-11.0)
[2020-04-20 08:53] LABS: ALBUMIN 3.4 GM/DL (3.2-4.5)
[2020-04-20 08:54] LABS: POTASSIUM 4.2 MMOL/L (3.6-5.0)
[2020-04-20 08:55] LABS: CALCIUM 8.3 MG/DL (8.5-10.1)
[2020-04-20 08:56] LABS: TOTAL PROTEIN 6.5 GM/DL (6.4-8.2)
[2020-04-20 08:58] LABS: BILIRUBIN,TOTAL 0.5 MG/DL (0.1-1.0)
[2020-04-20 08:59] LABS: CREATININE SERUM 1.31 MG/DL (0.60-1.30)
[2020-04-20 09:15] LABS: EOSINOPHILS % (MANUAL) 3 %; LYMPHOCYTES % (MANUAL) 37 %; MONOCYTES % (MANUAL) 3 %; NEUTROPHILS % (MANUAL) 57 %; RBC MORPH NORMAL
== END ==
LOC: LABNPT 08:09
PROVIDERS: ATTEND Family Medicine
DX: R05 Cough (principal); R06.00 Dyspnea, unspecified; Z20.828 Contact with and (suspected) exposure to other viral communicable diseases
CPT/HCPCS: 80053; 85007; 85027; U0002; 87635

== ENCOUNTER → 2020-05-10 | Outpatient (CLI) | payer MEDICARE, MEDICAID ==
--- NOTE | 2020-05-10 12:50 | Diagnostic Imaging Report ---
INDICATION: Screening. The current study was also evaluated with a Computer Aided Detection (CAD) system. 3-D Tomographic imaging was also performed. Comparison made with prior examination of 05/06/2019, 11/18/2013 and 07/04/2013. FINDINGS: There are scattered fibroglandular densities bilaterally. A few benign-type calcifications. Surgical clip in the right breast. There is no new dominant mass, spiculated lesions or suspicious calcification identified. Skin and nipples and axilla are unremarkable. IMPRESSION: Category 2 benign. ACR BI-RADS Category 2: Benign findings. Result letter will be mailed to the patient. Note: At least 10% of breast cancer is not imaged by mammography. Dictated by: Dictated on workstation # [id number]
== END ==
LOC: RAD 10:07
PROVIDERS: ATTEND Family Medicine
DX: Z12.31 Encounter for screening mammogram for malignant neoplasm of breast (principal); Z20.828 Contact with and (suspected) exposure to other viral communicable diseases
CPT/HCPCS: 77063; 77067

== ENCOUNTER 2020-09-28 14:46 | Outpatient (RCR) | payer MEDICARE, MEDICAID ==
[2020-09-27 10:03] LABS: BASOPHILS % (AUTO) 0 % (0-10); EOSINOPHILS # (AUTO) 0.1 10^3/uL (0.0-0.3); EOSINOPHILS % (AUTO) 2 % (0-10); HEMATOCRIT 38 % (35-52); HEMOGLOBIN 12.3 g/dL (11.5-16.0); LYMPHOCYTES % (AUTO) 33 % (12-44); MEAN CORPUSCULAR HEMOGLOBIN 31 pg (25-34); MEAN CORPUSCULAR HGB CONC 32 g/dL (32-36); MEAN CORPUSCULAR VOLUME 96 fL (80-99); MEAN PLATELET VOLUME 10.8 fL (9.0-12.2); MONOCYTES # (AUTO) 0.3 10^3/uL (0.0-1.0); MONOCYTES % (AUTO) 10 % (0-12); NEUTROPHILS # (AUTO) 1.6 10^3/uL (1.8-7.8); NEUTROPHILS % (AUTO) 54 % (42-75); PLATELET COUNT 79 10^3/uL (130-400); WHITE BLOOD COUNT 3.1 10^3/uL (4.3-11.0)
[2020-09-27 10:30] LABS: ALBUMIN 3.4 GM/DL (3.2-4.5); BILIRUBIN,TOTAL 0.4 MG/DL (0.1-1.0); CALCIUM 8.7 MG/DL (8.5-10.1); CREATININE SERUM 1.2 MG/DL (0.60-1.30); POTASSIUM 4.4 MMOL/L (3.6-5.0); TOTAL PROTEIN 6.6 GM/DL (6.4-8.2)
[~2020-09-28 14:46] MED LIST changes: +ESCI-2 PO; -ESCI10TA55 PO
== END 2020-12-26 | disposition home or self-care (01) ==
LOC: ONC 14:46
PROVIDERS: ATTEND Internal Medicine Hematology & Oncology
DX: D50.0 Iron deficiency anemia secondary to blood loss (chronic) (principal); D72.819 Decreased white blood cell count, unspecified; K74.5 Biliary cirrhosis, unspecified; K92.2 Gastrointestinal hemorrhage, unspecified; F17.210 Nicotine dependence, cigarettes, uncomplicated; R16.1 Splenomegaly, not elsewhere classified; Z79.899 Other long term (current) drug therapy
CPT/HCPCS: 80053; 82728; 85025; 99213

== ENCOUNTER → 2020-11-02 | Outpatient (CLI) | payer MEDICARE, MEDICAID ==
--- NOTE | 2020-11-02 09:18 | Diagnostic Imaging Report ---
INDICATION: Cirrhosis of the liver. PROCEDURE: Ultrasound abdomen complete. TECHNIQUE: Multiple real-time grayscale images were obtained of the abdomen in various projections. Comparison with 05/06/2019. FINDINGS: Liver is nodular and echogenic in appearance. Liver is somewhat contracted measuring 13 cm in long axis. Bile ducts are not dilated. Common duct measures 6 mm. The gallbladder is absent. Pancreas appears normal. The aorta, vena cava and portal vein appear normal with Doppler sampling. The spleen is mildly enlarged measuring 12 cm in long axis. Right kidney measures 9.2 x 4 x 4 cm. Left kidney measures 8.3 x 3.3 x 3.5 cm. There is no hydronephrosis. No calculi or masses are seen. There is no ascites. IMPRESSION: 1. The liver is very echogenic and nodular in appearance consistent with cirrhosis. 2. Mild splenomegaly. Dictated by: Dictated on workstation # [id number]
== END ==
LOC: RAD 08:30
PROVIDERS: ATTEND Family Medicine
DX: K74.60 Unspecified cirrhosis of liver (principal); R16.1 Splenomegaly, not elsewhere classified; Z90.49 Acquired absence of other specified parts of digestive tract
CPT/HCPCS: 76700

== ENCOUNTER → 2021-03-02 | Outpatient (CLI) | payer MEDICARE, MEDICAID ==
[~2021-03-02] MED LIST changes: -OMEP40CA27 PO; +OMEP40CA6 PO
--- NOTE | 2021-03-02 10:19 | Diagnostic Imaging Report ---
PROCEDURE: MR imaging of the brain without contrast. TECHNIQUE: Multiplanar, multisequence MR imaging of the brain was performed without contrast. INDICATION: Increasing headaches. Correlation is made with prior MRI of the brain from 05/12/2016. The ventricular size is stable. There is no diffusion restriction identified to suggest acute ischemia. Calcified lesion in the atrium of the right lateral ventricle measures 15 mm x 12 mm, similar to prior exam. Extensive periventricular and subcortical white matter changes are again noted, likely on the basis of chronic microvascular ischemia. There is no midline shift. No acute intra-axial or extra-axial hemorrhage is detected. Corpus callosum is unremarkable. Sella and parasellar structures are unremarkable. IMPRESSION: Stable noncontrast MRI of the brain when compared to the examination from 05/12/2016. Extensive white matter changes are again noted, likely on the basis of chronic microvascular ischemia. Demyelinating process such as MS cannot be entirely excluded. If there is concern for active demyelination, postcontrast MRI could be performed. The choroid plexus lesion in the right lateral ventricle appears to be similar in size. Dictated by: Dictated on workstation # [id number]
--- NOTE | 2021-03-02 10:51 | Diagnostic Imaging Report ---
INDICATION: Mid back pain with burning sensation. COMPARISON: None FINDINGS: Frontal and lateral views of the thoracic spine were obtained. Visualization of the upper thoracic spine is limited on the lateral projection. Alignment and vertebral heights are maintained. There is no fracture or destructive process. There are no large paraspinal masses. Minimal degenerative disease is noted in the thoracic spine. Limited views of the lungs are clear. IMPRESSION: 1. No acute fracture or dislocation of the thoracic spine. Dictated by: Dictated on workstation # [id number]
--- NOTE | 2021-03-02 13:33 | Diagnostic Imaging Report ---
PROCEDURE: MR imaging cervical spine without contrast. TECHNIQUE: Multiplanar, multisequence MR imaging of the cervical spine was performed without contrast. INDICATION: Neck pain with headaches. COMPARISON: 06/03/2019. FINDINGS: No acute fracture or dislocation is seen in the cervical spine. There is normal alignment of the cervical spine. The vertebral body heights and disc spaces are well maintained. The bone marrow signal is unremarkable. No focal osseous lesions. The craniocervical junction is maintained. The cervical spinal cord demonstrates normal intrinsic signal. No epidural collections are seen. The included brainstem and posterior fossa have normal appearance. Multilevel degenerative changes are seen in the cervical spine with posterior disc bulges and uncovertebral arthropathy. C2-C3: No significant spinal canal or foraminal stenosis. C3-C4: Uncovertebral arthropathy results in no significant spinal canal narrowing and no right and moderate left foraminal stenosis. C4-C5: No significant spinal canal or foraminal stenosis. C5-C6: Uncovertebral arthropathy and buckling of the ligamentum flavum results in mild spinal canal narrowing and no significant foraminal narrowing. C6-C7: Uncovertebral arthropathy and buckling of the ligamentum flavum results in no significant spinal canal or foraminal stenosis. C7-T1: No significant spinal canal or foraminal stenosis. The soft tissues of neck are unremarkable. Impression: 1. No acute fracture or dislocation of the cervical spine. 2. Multilevel degenerative changes in the cervical spine, greatest at C3-C4. Dictated by: Dictated on workstation # [id number]
== END ==
LOC: RAD 08:00
PROVIDERS: ATTEND Family Medicine
DX: M47.812 Spondylosis without myelopathy or radiculopathy, cervical region (principal); H31.8 Other specified disorders of choroid
CPT/HCPCS: 70551; 72072; 72141

== ENCOUNTER 2021-03-31 15:15 | Outpatient (RCR) | payer MEDICARE, MEDICAID ==
[2021-03-29 10:41] LABS: BASOPHILS % (AUTO) 0 % (0-10); EOSINOPHILS # (AUTO) 0.1 10^3/uL (0.0-0.3); HEMOGLOBIN 12.2 g/dL (11.5-16.0); MEAN CORPUSCULAR HEMOGLOBIN 31 pg (25-34)
[2021-03-29 10:43] LABS: EOSINOPHILS % (AUTO) 4 % (0-10); HEMATOCRIT 37 % (35-52); LYMPHOCYTES # (AUTO) 0.8 10^3/uL (1.0-4.0); LYMPHOCYTES % (AUTO) 30 % (12-44); MEAN CORPUSCULAR HGB CONC 33 g/dL (32-36); MEAN CORPUSCULAR VOLUME 94 fL (80-99); MEAN PLATELET VOLUME 10.2 fL (9.0-12.2); MONOCYTES # (AUTO) 0.3 10^3/uL (0.0-1.0); MONOCYTES % (AUTO) 13 % (0-12); NEUTROPHILS # (AUTO) 1.3 10^3/uL (1.8-7.8); NEUTROPHILS % (AUTO) 52 % (42-75); PLATELET COUNT 80 10^3/uL (130-400); WHITE BLOOD COUNT 2.6 10^3/uL (4.3-11.0)
[2021-03-29 11:03] LABS: ALBUMIN 3.6 GM/DL (3.2-4.5); BILIRUBIN,TOTAL 0.6 MG/DL (0.1-1.0); CALCIUM 8.7 MG/DL (8.5-10.1); CREATININE SERUM 1.69 MG/DL (0.60-1.30); POTASSIUM 4.2 MMOL/L (3.6-5.0); TOTAL PROTEIN 7.1 GM/DL (6.4-8.2)
[2021-03-31 16:17] LABS: BILIRUBIN,URINE NEGATIVE (NEGATIVE); COLOR,URINE YELLOW; GLUCOSE, URINE (UA) NEGATIVE (NEGATIVE); KETONES,URINE NEGATIVE (NEGATIVE); LEUKOCYTE ESTERASE ,URINE 2+ (NEGATIVE); NITRITE,URINE POSITIVE (NEGATIVE); PROTEIN,URINE NEGATIVE (NEGATIVE)
[2021-03-31 16:28] LABS: BACTERIA,URINE LARGE /HPF; CLARITY,URINE SL CLOUDY; WBC,URINE 50-100 /HPF
== END 2021-06-27 | disposition home or self-care (01) ==
LOC: ONC 15:15
PROVIDERS: ATTEND Internal Medicine Hematology & Oncology
DX: D50.0 Iron deficiency anemia secondary to blood loss (chronic) (principal); K74.5 Biliary cirrhosis, unspecified; F41.8 Other specified anxiety disorders; J44.9 Chronic obstructive pulmonary disease, unspecified; N18.30 Chronic kidney disease, stage 3 unspecified; K21.9 Gastro-esophageal reflux disease without esophagitis; D69.6 Thrombocytopenia, unspecified; D61.818 Other pancytopenia; R79.89 Other specified abnormal findings of blood chemistry; R16.1 Splenomegaly, not elsewhere classified; Z79.899 Other long term (current) drug therapy; Z72.0 Tobacco use
CPT/HCPCS: 80053; 81000; 82105; 82728; 85025; 87077; 87088; 87186; 99213

== ENCOUNTER → 2021-09-12 | Outpatient (CLI) | payer MEDICARE, MEDICAID ==
[~2021-09-12] MED LIST changes: +POTA-179 PO; -POTA20TA15 PO
--- NOTE | 2021-09-12 14:48 | Diagnostic Imaging Report ---
PROCEDURE: US Renal Bilateral. TECHNIQUE: Multiple Real-time grayscale images were obtained over the kidneys in various projections bilaterally. INDICATION: Renal insufficiency. FINDINGS: The right kidney measures 8.4 x 3.7 x 4.4 cm and the left kidney measures 8.2 x 3.6 x 3.4 cm. The cortical thickness and echogenicity are normal. No calculi are seen. There is no hydronephrosis. Images of the bladder demonstrate a right ureteral jet. The left ureteral jet was not visualized. IMPRESSION: Unremarkable renal ultrasound. Dictated by: Dictated on workstation # [id number]
== END ==
LOC: RAD 13:45
PROVIDERS: ATTEND Family Medicine
DX: N28.9 Disorder of kidney and ureter, unspecified (principal)
CPT/HCPCS: 76770

== ENCOUNTER → 2021-12-01 | Outpatient (CLI) | payer MEDICARE, MEDICAID ==
[~2021-12-01] MED LIST changes: +CATHETER FLUSH 10 ML SYR IV PRN; +HOLD METFORMIN - RECEIVED CONTRAST 20 ML VIAL IV SCH; +IOHEXOL 350 MG/ML 100 ML (OMNIPAQUE 350) VIAL IV ONE; +NS 100 ML (IVPB) BAG IV ONE
[2021-12-01 08:30] LABS: CREATININE SERUM 1.41 MG/DL (0.60-1.30)
--- NOTE | 2021-12-01 11:36 | Diagnostic Imaging Report ---
PROCEDURE: CT abdomen with and without contrast. TECHNIQUE: Multiple contiguous axial CT images of the abdomen were obtained prior to and after intravenous administration of iodinated contrast. Auto Exposure Controls were utilized during the CT exam to meet ALARA standards for radiation dose reduction. INDICATION: Abdominal pain COMPARED with CT chest, abdomen and pelvis performed in 2009 FINDINGS: The gallbladder is surgically absent. There is no pathological dilatation of the bile ducts. There is enhancement of the hepatic veins and portal veins. Directional flow cannot be addressed at CT. No liver mass. There is no radiopaque choledocholithiasis. The pancreas, its duct and the peripancreatic fat appeared normal. Mild splenomegaly, unchanged in magnitude. In axial plane it measures 12 cm long with hilar thickness of 6.7 cm and a craniocaudal height of 11 cm. At its lower pole anteriorly, there is a 15 mm peripheral low-density nodule which could be solid or cystic. This cannot be clearly identified on the remote comparison. Patent splenic vein is dilated and tortuous and there are some retroperitoneal venous varicosities on the left, new from prior. The liver surface particularly on its left lobe anteriorly is somewhat nodular and findings raise the question of portal hypertension and mild cirrhosis. No evidence of liver mass. The atherosclerotic aorta is nonaneurysmal there is no ascites, no abdominal small or large bowel obstruction. There is no hydronephrosis. The adrenals are negative. IMPRESSION: 1. Chronic splenomegaly however, equivocal findings for some cirrhotic morphology to the liver and new prominent left retroperitoneal venous varicosities raise the question of shunting from portal hypertension. Consider hepatic venous Doppler and ultrasound to evaluate to directional flow of the portal vein and assess for possible portal hypertension. 2. Ascites. No bowel, biliary or urinary tract obstruction. Dictated by: Dictated on workstation # [id number]
== END ==
LOC: RAD 07:59
PROVIDERS: ATTEND Internal Medicine Gastroenterology
DX: K74.3 Primary biliary cirrhosis (principal); R18.8 Other ascites
CPT/HCPCS: 36415; 74170; 82565; 84520

== ENCOUNTER → 2022-06-20 | Outpatient (CLI) | payer MEDICARE, MEDICAID ==
[~2022-06-20] MED LIST changes: -CATHETER FLUSH 10 ML SYR IV PRN; -HOLD METFORMIN - RECEIVED CONTRAST 20 ML VIAL IV SCH; -IOHEXOL 350 MG/ML 100 ML (OMNIPAQUE 350) VIAL IV ONE; +LEVO750T PO; -LEVO750T39 PO; -NS 100 ML (IVPB) BAG IV ONE
--- NOTE | 2022-06-20 11:31 | Diagnostic Imaging Report ---
Indication: Routine screening. INDICATION: Screening. COMPARISON: 05/10/2020 and 05/06/2019. TECHNIQUE: 2D and 3D bilateral screening mammography was performed with CAD. FINDINGS: Scattered fibroglandular densities are identified bilaterally. The overall parenchymal pattern appears stable. There are benign calcifications bilaterally. There is a clip in the right breast. No new mass or malignant-appearing microcalcifications are seen. The axillae are unremarkable. IMPRESSION: No mammographic features suspicious for malignancy are identified. ACR BI-RADS Category 2: Benign findings. Result letter will be mailed to the patient. Note: At least 10% of breast cancer is not imaged by mammography. Dictated by: Dictated on workstation # [id number]
--- NOTE | 2022-06-20 14:39 | Diagnostic Imaging Report ---
EXAMINATION: MRI THORACIC SPINE W/O CON. INDICATION: Thoracic pain. COMPARISON: Thoracic spine radiographs of 03/02/2021. TECHNIQUE: Multiplanar, multisequence MR imaging of the thoracic spine was performed without contrast. FINDINGS: Normal kyphosis of the thoracic spine. There is no concerning marrow replacing process. There are a few scattered T1 hyperintense hemangiomas within the mid to upper thoracic vertebrae. The thoracic cord is normal in size and signal. There is no extradural fluid collection. No disc bulges or herniations. No spinal canal stenosis. No neuroforaminal narrowing. Paravertebral musculature is normal. Visualized portions of the upper abdomen are unremarkable. No pleural effusion. IMPRESSION: Normal thoracic spine MRI. Dictated by: Dictated on workstation # [id number]
== END ==
LOC: RAD 08:49
PROVIDERS: ATTEND Family Medicine
DX: Z12.31 Encounter for screening mammogram for malignant neoplasm of breast (principal); M51.34 Other intervertebral disc degeneration, thoracic region
CPT/HCPCS: 72146; 77063; 77067

== ENCOUNTER → 2022-11-28 | Outpatient (CLI) | payer MEDICARE, MEDICAID ==
--- NOTE | 2022-11-28 11:59 | Diagnostic Imaging Report ---
US HEPATIC (LIVER)[id number] Date: 11/28/2022 10:58 AM Indication: CHRONIC LIVER DISEASE. Comparison: CT of the abdomen 12/01/2021. Findings: No free fluid in the visualized abdomen. Liver: Coarse liver echotexture and slight surface nodularity.. The liver measures 12 point cm craniocaudal. The portal vein is patent with anterograde flow. Bile ducts: Common bile duct diameter is normal at 0.5 cm. No intrahepatic ductal dilation. Gallbladder: Gallbladder surgically absent. Pancreas: The pancreas is segmentally visualized and normal where seen. Right kidney: The right kidney is negative for hydronephrosis. It measures 7.5 x 3.9 x 4.3 cm. Aorta and IVC: Normal caliber upper abdominal aorta and IVC. Impression: Coarse liver echotexture and slight surface nodularity may be seen with cirrhosis. Dictated by: Dictated on workstation # [id number]
== END ==
LOC: RAD 09:21
PROVIDERS: ATTEND Family Medicine
DX: K76.9 Liver disease, unspecified (principal)
CPT/HCPCS: 76705

== ENCOUNTER → 2023-02-21 | Outpatient (CLI) | payer MEDICARE, MEDICAID ==
--- NOTE | 2023-02-21 12:57 | Diagnostic Imaging Report ---
INDICATION: PAIN IN LEFT TIBIA COMPARISON: None. FINDINGS: 2 views of the left tibia and fibula were obtained and show no fractures, dislocations, or other acute bony abnormalities. Joint spaces are well maintained throughout. The soft tissues appear unremarkable. No unexpected radiopaque foreign bodies are identified. IMPRESSION: Unremarkable radiographic exam of the left tibia and fibula. Dictated by: Dictated on workstation # [id number]
== END ==
LOC: RAD 11:24
PROVIDERS: ATTEND Family Medicine
DX: M89.8X6 Other specified disorders of bone, lower leg (principal)
CPT/HCPCS: 73590

== ENCOUNTER → 2023-04-23 | Outpatient (CLI) | payer MEDICARE, MEDICAID ==
--- NOTE | 2023-04-23 18:09 | Diagnostic Imaging Report ---
INDICATION: Right-sided rib pain. FINDINGS: Three views of the right ribs show no displaced fractures. Right lung is clear. There are no effusions or pneumothoraces. IMPRESSION: Negative right ribs. Dictated by: Dictated on workstation # [id number]
== END ==
LOC: RAD 14:47
PROVIDERS: ATTEND Family Medicine
DX: S29.9XXA Unspecified injury of thorax, initial encounter (principal); W10.9XXA Fall (on) (from) unspecified stairs and steps, initial encounter
CPT/HCPCS: 71100